=== PATIENT | female | born 1965 | race African-American/Black ===

== ENCOUNTER → 2021-07-08 | Day surgery (SDC) | payer OTHER | END | disposition home or self-care (01) | LOC: FMAMMOTONE 10:54 | PROVIDERS: ATTEND Family Medicine | PROC: 0HBT3ZX Excision of Right Breast, Percutaneous Approach, Diagnostic (ICD-10-PCS; principal; 2021-07-08) | DX: N60.31 Fibrosclerosis of right breast (principal); N60.81 Other benign mammary dysplasias of right breast; N64.89 Other specified disorders of breast; R92.0 Mammographic microcalcification found on diagnostic imaging of breast | CPT/HCPCS: 19081; 76098-TC-FY; 87899; 88305-TC; A4648 ==

== ENCOUNTER 2023-08-27 23:23 | Emergency (ER) | payer OTHER ==
[2023-08-27 23:33] VITALS: TEMP 98.2; BMI 33.9
[2023-08-28] MEDS ORDERED: METOCLOPRAMIDE HCL INJECTION 10 MG/2 ML VIAL ONE (00:04)
[2023-08-28] MEDS: METOCLOPRAMIDE HCL INJECTION 10 MG/2 ML VIAL IVPUSH ONE (00:15)
[2023-08-28] MEDS: SODIUM CHLORIDE 0.9% 500 ML INFUS.BAG IV ONE (00:15)
[2023-08-28 00:34] LABS: BASO % 0.2 % (0-2.0); EOS % 0.8 % (0-4.5); HEMATOCRIT 38.7 % (32.4-45.2); HEMOGLOBIN 12.5 GM/dL (10.7-15.3); LYMPH % 17.2 % (8-40); MCH 27.4 pg (25.7-33.7); MCHC 32.4 g/dl (32.0-36.0); MEAN CELL VOLUME 84.7 fl (80-96); MEAN PLT VOLUME 7.6 fl (7.5-11.1); MONO % 6.1 % (3.8-10.2); NEUT % 75.7 % (42.8-82.8); PLATELET COUNT 253 10^3/uL (134-434); RBC 4.57 M/mm3 (3.60-5.2); RDW 14.1 % (11.6-15.6); WHITE BLOOD COUNT 8.4 K/mm3 (4.0-10.0)
[2023-08-28 00:49] LABS: POTASSIUM 3.5 mmol/L (3.5-5.1)
[2023-08-28 00:53] LABS: ALBUMIN 3.8 g/dl (3.4-5.0); CALCIUM 9.7 mg/dL (8.5-10.1); MAGNESIUM 2.2 mg/dL (1.8-2.4)
[2023-08-28 00:56] LABS: BILIRUBIN,TOTAL 0.4 mg/dL (0.2-1); TOT PROT 7.3 g/dl (6.4-8.2)
[2023-08-28] MEDS ORDERED: MECLIZINE HCL 25 MG TABLET (FP) ONE (01:37)
[2023-08-28] MEDS: MECLIZINE HCL 25 MG TABLET (FP) PO ONE (01:44)
[2023-08-28 02:04] VITALS: BP 112/66; PULSE 72; RESP 16
== END 2023-08-28 02:05 | disposition home or self-care (01) ==
LOC: JER 23:23
PROC: 3E033GC Introduction of Other Therapeutic Substance into Peripheral Vein, Percutaneous Approach (ICD-10-PCS; principal; 2023-08-28)
DX: R42 Dizziness and giddiness (principal); R53.1 Weakness; R06.02 Shortness of breath; R07.89 Other chest pain; R20.2 Paresthesia of skin; F41.9 Anxiety disorder, unspecified; Z20.822 Contact with and (suspected) exposure to COVID-19
CPT/HCPCS: 0241U-QW; 36415; 70450-TC; 71045-TC-FY; 80053; 80061; 83036; 83735; 84484; 85025; 93005; 93010; 99285-25